=== PATIENT | male | born 1975 | race Hispanic/Latino ===

== ENCOUNTER 2022-06-17 11:27 | Inpatient (IN) | payer SELFPAY ==
[~2022-06-17 11:27] MED LIST: Iopamidol-370 76% 500 ML 1 ML ONE
[2022-06-17 12:27] LABS: #Eosinphils 0.1 thou/uL (0.0-0.7); #Lymphocytes 2.8 thou/uL (1.20-3.40); #Monocytes 0.8 thou/uL (0.11-0.59); #Neutrophils 9.6 thou/uL (1.40-6.50); %Basophils 0.2 % (0.0-1.0); %Eosinophils 0.9 % (0.0-10.0); %Lymphocytes 20.9 % (21.0-51.0); %Monocytes 5.8 % (0.0-10.0); %Neutrophils 72.3 % (42.0-75.0); Hemoglobin 16.1 g/dL (14.0-18.0); Mean Corpuscular HGB CONC 32.6 g/dL (32.0-36.0); Mean Corpuscular Hemoglobin 28.7 pg (27.0-31.0); Mean Corpuscular Volume 88.1 fl (78.0-98.0); Mean Platelet Volume 7.8 fL (7.4-10.4); Platelet Count 326 10x3/uL (130-400); RBC Distribution Width 12.8 % (11.5-14.5); White Blood Cell (WBC) Count 13.2 10x3/uL (4.8-10.8)
[2022-06-17 12:42] LABS: ALT (SGPT) 27 U/L (8-55); AST (SGOT) 18 U/L (5-34); Albumin 4.2 g/dL (3.5-5.0); Alkaline Phosphatase 67 U/L (40-110); Anion Gap 11 mmol/L (10-20); BUN (Urea Nitrogen) 8 mg/dL (8.9-20.6); Bilirubin, Total 0.6 mg/dL (0.2-1.2); Calc. Creatinine Clearance 0 mL/min (70-130); Calcium 9.2 mg/dL (7.8-10.44); Carbon Dioxide 26 mmol/L (22-29); Chloride 103 mmol/L (98-107); Estimated GFR 113; Globulin 3.7 g/dL (2.4-3.5); Glucose 171 mg/dL (70-105); Potassium 3.7 mmol/L (3.5-5.1); Protein, Total 7.9 g/dL (6.0-8.3); Sodium 136 mmol/L (136-145)
[2022-06-17] MEDS ORDERED: Nitroglycerin 2% Ointment 1 INCH/1 GM Packet ONE (12:57)
[2022-06-17 13:15] LABS: CKMB 1.2 ng/mL (0-6.6)
[2022-06-17 14:09] LABS: Prothrombin Time 13.1 sec (12.0-14.7)
[2022-06-17 14:10] LABS: PTT 31.6 sec (22.9-36.1)
[2022-06-17] MEDS ORDERED: Ondansetron ODT 4 MG TAB PO PRN (15:43)
[2022-06-17] MEDS ORDERED: Acetaminophen 325 MG TAB PO PRN (15:43)
[2022-06-17] MEDS ORDERED: Ondansetron PF 4 MG/2 ML Vial IVP PRN (15:43)
[2022-06-17] MEDS ORDERED: Dextrose 50% Abboject 50 ML SYRINGE SLOW IVP PRN (15:45)
[2022-06-17] MEDS ORDERED: Nitroglycerin 0.4 MG TAB (25 Tab Bottle) SL PRN (15:45)
[2022-06-17] MEDS ORDERED: HumaLOG 300 UNITS/3 ML VIAL SC PRN (15:45)
[2022-06-17] MEDS ORDERED: Dextrose 5% in Water 1,000 ML IV PRN (15:45)
[2022-06-17 16:33] VITALS: BMI 47.1
[2022-06-17] MEDS ORDERED: FLU VACC QS2022-23(6MOS UP)/PF 60 MCG/0.5 ML SYRINGE IM ONE (17:00)
[2022-06-17 19:51] LABS: Troponin I 0.406 ng/mL (< 0.028)
[2022-06-17] MEDS ORDERED: Rosuvastatin 10 MG TAB PO SCH (21:00)
[2022-06-17 21:21] LABS: Bacteria/HPF None Seen HPF (None Seen); Bilirubin Negative (Negative); Blood, Urine Negative (Negative); CAUTI Indications for Culture Alt mental st,lethar; Clarity Clear (Clear); Glucose, Urine (Dipstick) 30 mg/dL (Negative); Ketone, Urine Negative (Negative); Leukocyte Negative Leu/uL (Negative); Nitrite Negative (Negative); Protein, Urine (Dipstick) 50 mg/dL (Neg-Trace); RBC/HPF 0-3 HPF (0-3); Specific Gravity, Urine 1.041 (1.002-1.036); Squamous Epithelial 0-3 HPF (0-3); Urobilinogen Normal mg/dL (Less than 2); pH, Urine 5.5 (5.0-9.0)
[2022-06-17 21:22] LABS: Amphetamine Not Detected (NotDetected); Barbiturates Screen Not Detected (NotDetected); Benzodiazepine Screen Not Detected (NotDetected); Cocaine Metabolite Screen Not Detected (NotDetected); Methadone Not Detected (NotDetected); Methamphetamine Not Detected (NotDetected); Opiate Screen Not Detected (NotDetected); Oxycodone Screen Not Detected (NotDetected); Phencyclidine (PCP) Not Detected (NotDetected); THC/Cannabinoid Screen Not Detected (NotDetected); Tricyclic Screen Not Detected (NotDetected); Urine Culture Reflex No No
[2022-06-17] MEDS: Famotidine 20 MG TAB PO SCH (21:49)
[2022-06-17] MEDS: Nitroglycerin 2% Ointment 1 INCH/1 GM Packet TOP SCH (21:50)
[2022-06-17] MEDS: Rosuvastatin 20 MG TAB PO SCH (21:50)
[2022-06-18 03:55] LABS: #Basophils 0.1 thou/uL (0.0-0.2); #Eosinphils 0.2 thou/uL (0.0-0.7); #Lymphocytes 5.4 thou/uL (1.20-3.40); #Monocytes 1.1 thou/uL (0.11-0.59); #Neutrophils 6.3 thou/uL (1.40-6.50); %Basophils 0.5 % (0.0-1.0); %Eosinophils 1.7 % (0.0-10.0); %Lymphocytes 41.2 % (21.0-51.0); %Monocytes 8.3 % (0.0-10.0); %Neutrophils 48.3 % (42.0-75.0); Hemoglobin 14.8 g/dL (14.0-18.0); Mean Corpuscular HGB CONC 32.1 g/dL (32.0-36.0); Mean Corpuscular Hemoglobin 28.7 pg (27.0-31.0); Mean Corpuscular Volume 89.2 fl (78.0-98.0); Mean Platelet Volume 7.7 fL (7.4-10.4); Platelet Count 300 10x3/uL (130-400); RBC Distribution Width 12.9 % (11.5-14.5); Red Blood Cell (RBC) Count 5.15 mill/uL (4.70-6.10); White Blood Cell (WBC) Count 13.1 10x3/uL (4.8-10.8)
[2022-06-18 04:16] LABS: Anion Gap 12 mmol/L (10-20); BUN (Urea Nitrogen) 10 mg/dL (8.9-20.6); Calc. Creatinine Clearance 220 mL/min (70-130); Calcium 9.4 mg/dL (7.8-10.44); Carbon Dioxide 26 mmol/L (22-29); Chloride 102 mmol/L (98-107); Cholesterol 145 mg/dl (< 200 Desired); Estimated GFR 110; Glucose 168 mg/dL (70-105); HDL Cholesterol 36 mg/dL (>60 Neg Risk); LDL Cholesterol, Calculated 83 mg/dL; Magnesium 1.9 mg/dL (1.6-2.6); Potassium 3.8 mmol/L (3.5-5.1); Sodium 136 mmol/L (136-145); Triglycerides 130 mg/dL (Less than 150)
[2022-06-18 04:19] LABS: Hemoglobin A1c 7.6 % (4.0-6.0)
[2022-06-18] MEDS: Nitroglycerin 2% Ointment 1 INCH/1 GM Packet TOP SCH ×3 (05:31→20:27)
[2022-06-18] MEDS: Aspirin Chewable 81 MG TAB PO SCH (08:29)
[2022-06-18] MEDS: Famotidine 20 MG TAB PO SCH ×2 (08:29→20:27)
[2022-06-18] MEDS: HumaLOG 300 UNITS/3 ML VIAL SC PRN (17:40)
[2022-06-18] MEDS ORDERED: Communication Order-Pharmacy FS SCH (19:15)
[2022-06-18] MEDS: Lisinopril 5 MG TAB PO SCH (20:26)
[2022-06-18] MEDS: Rosuvastatin 20 MG TAB PO SCH (20:26)
[2022-06-19 04:51] LABS: #Basophils 0.1 thou/uL (0.0-0.2); #Eosinphils 0.2 thou/uL (0.0-0.7); #Monocytes 1.1 thou/uL (0.11-0.59); #Neutrophils 6.2 thou/uL (1.40-6.50); %Basophils 0.5 % (0.0-1.0); %Eosinophils 1.7 % (0.0-10.0); %Monocytes 8.5 % (0.0-10.0); %Neutrophils 49.4 % (42.0-75.0); Hemoglobin 15.3 g/dL (14.0-18.0); Mean Corpuscular HGB CONC 33.7 g/dL (32.0-36.0); Mean Corpuscular Hemoglobin 29.7 pg (27.0-31.0); Mean Corpuscular Volume 88.2 fl (78.0-98.0); Mean Platelet Volume 7.8 fL (7.4-10.4); Platelet Count 284 10x3/uL (130-400); RBC Distribution Width 12.9 % (11.5-14.5); Red Blood Cell (RBC) Count 5.16 mill/uL (4.70-6.10); White Blood Cell (WBC) Count 12.5 10x3/uL (4.8-10.8)
[2022-06-19 05:19] LABS: Anion Gap 12 mmol/L (10-20); BUN (Urea Nitrogen) 12 mg/dL (8.9-20.6); Calc. Creatinine Clearance 232 mL/min (70-130); Calcium 9.6 mg/dL (7.8-10.44); Carbon Dioxide 28 mmol/L (22-29); Chloride 102 mmol/L (98-107); Estimated GFR 112; Glucose 145 mg/dL (70-105); Potassium 3.9 mmol/L (3.5-5.1); Sodium 138 mmol/L (136-145)
[2022-06-19] MEDS: Nitroglycerin 2% Ointment 1 INCH/1 GM Packet TOP SCH ×3 (05:51→20:57)
[2022-06-19] MEDS: Aspirin Chewable 81 MG TAB PO SCH (09:27)
[2022-06-19] MEDS: Furosemide 20 MG TAB PO SCH (09:27)
[2022-06-19] MEDS: Carvedilol 6.25 MG TAB PO SCH ×2 (09:27→18:54)
[2022-06-19] MEDS: Lisinopril 5 MG TAB PO SCH ×2 (09:27→20:57)
[2022-06-19] MEDS: Famotidine 20 MG TAB PO SCH ×2 (09:27→20:57)
[2022-06-19] MEDS ORDERED: Carvedilol 6.25 MG TAB PO SCH (18:45)
[2022-06-19] MEDS: Rosuvastatin 20 MG TAB PO SCH (20:57)
[2022-06-20] MEDS ORDERED: Sodium Chloride 0.9% 1,000 ML IV SCH ×2 (06:00→13:15)
[2022-06-20] MEDS: Nitroglycerin 2% Ointment 1 INCH/1 GM Packet TOP SCH ×3 (06:40→20:37)
[2022-06-20] MEDS: Carvedilol 6.25 MG TAB PO SCH ×2 (08:00→18:18)
[2022-06-20] MEDS: Lisinopril 5 MG TAB PO SCH ×2 (08:01→20:37)
[2022-06-20] MEDS: Aspirin Chewable 81 MG TAB PO SCH (08:01)
[2022-06-20] MEDS: Famotidine 20 MG TAB PO SCH ×2 (08:02→20:38)
[2022-06-20] MEDS: Furosemide 20 MG TAB PO SCH (08:02)
[2022-06-20] MEDS ORDERED: Iopamidol 370 76% 100 ML VIAL ONE (09:29)
[2022-06-20] MEDS ORDERED: Lidocaine 1% (PF) 30 ML VIAL ONE (11:29)
[2022-06-20] MEDS ORDERED: Heparin 10,000 UNITS/ 10 ML VIAL ONE (11:43)
[2022-06-20] MEDS ORDERED: Nitroglycerin 100MG/250ML BOT 250 ML ONE (12:00)
[2022-06-20] MEDS ORDERED: Verapamil 5 MG/2 ML VIAL ONE (12:00)
[2022-06-20] MEDS ORDERED: FENTANYL 50 MCG/ML 1 ML VIAL ONE (12:36)
[2022-06-20] MEDS ORDERED: Midazolam HCl 2 mg/2 ml Vial ONE (12:36)
[2022-06-20] MEDS ORDERED: hydrALAZINE 20 MG/ML VIAL ONE (12:43)
[2022-06-20] MEDS ORDERED: Nitroglycerin 0.4 MG TAB (25 Tab Bottle) SL PRN (13:02)
[2022-06-20] MEDS ORDERED: Acetaminophen/Codeine 30-300mg Tablet PO PRN ×2 (13:02)
[2022-06-20] MEDS ORDERED: Sodium Chloride 0.9% 200 ML IV PRN (13:02)
[2022-06-20] MEDS: Rosuvastatin 20 MG TAB PO SCH (20:38)
[2022-06-21] MEDS: HumaLOG 300 UNITS/3 ML VIAL SC PRN ×2 (05:41→16:28)
[2022-06-21] MEDS: Nitroglycerin 2% Ointment 1 INCH/1 GM Packet TOP SCH ×3 (05:41→20:54)
[2022-06-21] MEDS: Carvedilol 6.25 MG TAB PO SCH ×2 (08:59→16:26)
[2022-06-21] MEDS: Furosemide 20 MG TAB PO SCH (08:59)
[2022-06-21] MEDS: Lisinopril 5 MG TAB PO SCH (08:59)
[2022-06-21] MEDS: Aspirin Chewable 81 MG TAB PO SCH (08:59)
[2022-06-21] MEDS: Famotidine 20 MG TAB PO SCH ×2 (09:00→20:51)
[2022-06-21] MEDS ORDERED: Lisinopril 10 MG TAB PO SCH (09:15)
[2022-06-21] MEDS ORDERED: Lisinopril 5 MG TAB PO SCH (09:45)
[2022-06-21] MEDS: Rosuvastatin 20 MG TAB PO SCH (20:51)
[2022-06-21] MEDS: Lisinopril 10 MG TAB PO SCH (20:51)
[2022-06-22] MEDS: HumaLOG 300 UNITS/3 ML VIAL SC PRN (06:19)
[2022-06-22] MEDS: Nitroglycerin 2% Ointment 1 INCH/1 GM Packet TOP SCH ×2 (06:19→15:10)
[2022-06-22] MEDS: Carvedilol 6.25 MG TAB PO SCH (09:06)
[2022-06-22] MEDS: Furosemide 20 MG TAB PO SCH (09:06)
[2022-06-22] MEDS: Aspirin Chewable 81 MG TAB PO SCH (09:06)
[2022-06-22] MEDS: Lisinopril 10 MG TAB PO SCH (09:07)
[2022-06-22] MEDS: Famotidine 20 MG TAB PO SCH (09:07)
[2022-06-22 15:45] VITALS: BP 159/81; TEMP 98.2
[2022-06-22] MEDS ORDERED: Carvedilol 25 MG TAB PO SCH (17:00)
== END 2022-06-22 19:15 | disposition home or self-care (01) | DRG 281 ==
LOC: ERS 11:27 → 2NO 14:14
PROVIDERS: ADMIT Family Medicine; ATTEND Hospitalist
PROC: 4A023N7 Measurement of Cardiac Sampling and Pressure, Left Heart, Percutaneous Approach (ICD-10-PCS; principal; 2022-06-20)
PROC: B2111ZZ Fluoroscopy of Multiple Coronary Arteries using Low Osmolar Contrast (ICD-10-PCS; 2022-06-20)
DX: I16.1 Hypertensive emergency (principal); I21.A1 Myocardial infarction type 2; I42.8 Other cardiomyopathies; Z68.42 Body mass index [BMI] 45.0-49.9, adult; I10 Essential (primary) hypertension; E78.5 Hyperlipidemia, unspecified; F17.210 Nicotine dependence, cigarettes, uncomplicated; D72.829 Elevated white blood cell count, unspecified; E78.00 Pure hypercholesterolemia, unspecified; I16.0 Hypertensive urgency; E66.01 Morbid (severe) obesity due to excess calories; I25.10 Atherosclerotic heart disease of native coronary artery without angina pectoris; E11.65 Type 2 diabetes mellitus with hyperglycemia; Z79.899 Other long term (current) drug therapy; Z91.14 Patient's other noncompliance with medication regimen; Z79.82 Long term (current) use of aspirin; Z79.84 Long term (current) use of oral hypoglycemic drugs; Z20.822 Contact with and (suspected) exposure to COVID-19
CPT/HCPCS: 36415; 36416; 71045; 71275; 78452; 80048; 80053; 80061; 80306; 81001; 82553; 83036; 83735; 83880; 84443; 84484; 85025; 85610; 85730; 93005; 93017; 93306; 93458; 93798; 94760; 96372; 97139; 99152; A9500; C1769; C1894; J0153; J1644; J1650; J1815; J2001; J2250; J3010; J7050; Q9967; U0003; U0005